=== PATIENT | female | born 1965 | race Caucasian/White ===

== ENCOUNTER 2017-04-24 07:31 | Emergency (ER) | payer BC, OTHER ==
--- NOTE | 2017-04-24 12:38 | RAD ---
SOFT TISSUE NECK TWO VIEWS 04/24/2017 The prevertebral soft tissues are normal in thickness. No opaque foreign body was appreciated. The epiglottis is normal in size. Some degenerative changes are noted in the cervical spine. IMPRESSION: No acute findings. POS: [facility]
== END 2017-04-24 08:25 | disposition home or self-care (01) ==
LOC: BURERS 07:31
DX: R13.10 Dysphagia, unspecified (principal)
CPT/HCPCS: 70360